=== PATIENT | female | born 1970 | race Two or more races ===

== ENCOUNTER 2020-07-05 11:58 | Emergency (ER) | payer BC ==
[~2020-07-05] VITALS: Ht 162.6 cm; Wt 88.9 kg
[2020-07-05 12:13] VITALS: Ht 162.6 cm; Wt 88.9 kg
[2020-07-05 13:13] LABS: BASOPHIL % 0.7 % (0.2-1.3); PLATELET COUNT 388 x10^3mcL (179-408)
[2020-07-05 13:25] LABS: RED CELL DISTRIBUTION WIDTH 14.9 % (12.3-17.7)
[2020-07-05 13:33] LABS: CARBON DIOXIDE 26.7 mmol/L (21-32); CHLORIDE SERUM 105 mmol/L (98-107); CREATININE SERUM 0.7 mg/dL (0.6-1.0); GFR1 > 60 mL/min; GLUCOSE SERUM 114 mg/dL (74-106); POTASSIUM SERUM 4.9 mmol/L (3.5-5.1); SODIUM SERUM 139 mmol/L (136-145)
[2020-07-05 13:47] LABS: ALBUMIN 3.6 g/dL (3.4-5.0); ALKALINE PHOSPHATASE 89 U/L (46-116); ALT/SGPT 46 U/L (14-59); AST/SGOT 31 U/L (15-37); BILIRUBIN TOTAL 0.3 mg/dL (0.20-1.00)
[2020-07-05 14:00] VITALS: BP 122/82
[2020-07-05] MEDS ORDERED: TRAZODONE50 M1 PO (14:04)
[2020-07-05] MEDS ORDERED: HYDROXYZINE HYD25 MG PO (14:04)
[2020-07-05] MEDS ORDERED: ONDANSETRON4 M3 PO (14:14)
== END 2020-07-05 14:32 | disposition home or self-care (01) ==
LOC: ED 11:58
PROVIDERS: Student in an Organized Health Care Education/Training Program
DX: F41.9 Anxiety disorder, unspecified (principal); G47.00 Insomnia, unspecified; F43.21 Adjustment disorder with depressed mood
CPT/HCPCS: J2060; J7030